=== PATIENT | male | born 1970 | race Caucasian/White ===

== ENCOUNTER 2024-03-21 09:15 | Emergency (ER) | payer OTHER, SELFPAY ==
--- NOTE | ~2024-03-21 | XR_ITS ---
EXAMINATION: XR chest 2V DATE: 03/21/2024 10:50 INDICATION: Hypertension. TECHNIQUE: Frontal and lateral views of the chest were obtained. COMPARISON: Chest 2 views 06/27/2005 FINDINGS: There is mild atelectasis at left lung base. No pleural effusion or pneumothorax. The heart size is normal. IMPRESSION: 1. Mild atelectasis at left lung base. Reviewed, dictated and finalized at location A.
[2024-03-21 09:17] VITALS: BP 207/118; PULSE 72; RESP 16; TEMP 36.6; O2SAT 100
--- NOTE | 2024-03-21 09:59 | ECG_ITS ---
Test Date: 2024-03-21 10:14:24 Measurements Intervals [place] Rate: 64 P: 19 WA: 176 QRS: -6 QRSD: 86 T: 15 QT: 381 QTc: 394 Interpretive Statements SINUS RHYTHM NORMAL ELECTROCARDIOGRAM No previous ECG available for comparison Electronically Signed On 03-22-2024 06:59:54 CDT by Sam Vilchis M.D.
[2024-03-21 10:16] LABS: Basophils Percent Auto 0.2 % (0.2-1.2); Eosinophils Absolute Auto 0.1 K/mm3 (0-0.3); Eosinophils Percent Auto 1.2 % (0-4.4); Hematocrit 43.5 % (42.0-52.0); Hemoglobin 16.1 g/dL (14.0-18.0); Immature Granulocyte Absolute 0.01 K/mm3 (0.00-0.031); Immature Granulocyte Percent A 0.2 % (0-0.5); Lymphocytes Absolute Auto 1.42 K/mm3 (0.9-3.2); Lymphocytes Percent Auto 28.2 % (18.3-44.2); Mean Corpuscular Hemoglobin 33.5 pg (26-34); Mean Corpuscular Volume 90.4 fl (80-100); Monocytes Absolute Auto 0.3 K/mm3 (0.1-0.6); Monocytes Percent Auto 6.4 % (2.6-8.5); Neutrophils Absolute Auto 3.2 K/mm3 (1.3-6.7); Neutrophils Percent Auto 63.8 % (45.5-73.1); Platelet Count Result 284 k/mm3 (150-375); Red Blood Count 4.81 M/mm3 (4.6-6.20); Red Cell Distribution Width 12.6 % (11.5-14.5)
[2024-03-21 10:18] VITALS: BP 169/122; PULSE 66; RESP 16; O2SAT 95
[2024-03-21] MEDS: hydroCHLOROthiazide 12.5 MG CAPSULE PO (10:25)
--- NOTE | 2024-03-21 10:25 | ED.RECABL ---
HPI - Recheck/Abnormal Lab/Rx General Chief Complaint: Recheck/Abnormal Lab/Rx Stated Complaint: elevated blood pressure Time Seen by Provider: 03/21/24 09:24 Source: patient Mode of arrival: ambulatory Limitations: no limitations History of Present Illness HPI narrative: patient is a 54-year-old male presents the ED with report of hypertension. Patient reports he saw a physician in [facility] a few weeks ago (where patient spends part of the year for work). His BP was elevated at that time and patient was told to monitor. Patient states this morning, he noted his BP to be elevated into the 170s-180s systolic/100-110s diastolic. He then prompted here for further evaluation. Patient states he otherwise feels in his normal state of health. Denies chest pain, shortness breath, vision changes, headaches, numbness, weakness. Has never been diagnosed with high blood pressure before, has never been of hypertensive medications. Denies any other past medical history. Related Data Allergies Allergy/AdvReac Type Severity Reaction Status Date / Time Penicillins Allergy Unknown Unknown Verified 03/21/24 09:27 Review of Systems Review of Systems: All systems reviewed & are unremarkable except as noted in HPI. All systems reviewed & are unremarkable except as noted in HPI and below PMFSH Family History Family History Father Family history of diabetes mellitus in first degree relative Family history of heart disease in male family member before age 55 Grandparent Family history of emphysema Diabetes mellitus Social History Social History Smoking status: Never smoker Alcohol intake: current Exam Narrative: GENERAL: Well appearing, BMI of 31.4, non-toxic, in no acute distress. HEAD: Normocephalic, atraumatic. RESPIRATORY: Airway patent, respirations nonlabored. Clear to auscultation bilaterally, no rales, rhonchi, wheezing. CARDIOVASCULAR: Regular rate and rhythm without murmurs, rubs, or gallops. peripheral pulses intact. MUSCULOSKELETAL: Moves all extremities. No gross deformities. SKIN: Warm, dry, normal color. NEURO: A&O X3. Speech clear. Cranial nerves II-XII grossly intact. Steady gait. No ataxic movements. PSYCHIATRIC: Appropriate mood and affect. Normal interaction. Course Vital Signs Vital signs: Vital Signs Temperature 97.9 F 03/21/24 09:17 Pulse Rate 72 03/21/24 09:17 Respiratory Rate 16 03/21/24 09:17 Blood Pressure 207/118 H 03/21/24 09:17 Pulse Oximetry 100 03/21/24 09:17 Oxygen Delivery Room Air 03/21/24 09:17 Temperature 97.9 F 03/21/24 09:17 Pulse Rate 69 03/21/24 11:19 Respiratory Rate 20 03/21/24 11:19 Blood Pressure 181/119 H 03/21/24 11:19 Pulse Oximetry 96 03/21/24 11:19 Oxygen Delivery Room Air 03/21/24 09:17 MDM - Recheck/Abnormal Lab/Rx MDM Narrative Medical decision making narrative: Patient presented to ED with new onset hypertension, asymptomatic at this time. Initial blood pressure upon arrival 207/118. Did improve into the 160-180 systolic range without intervention. Patient has had numerous elevated readings over the last few weeks. Discussed official diagnosis of hypertension and need for medication based on this. Will obtain basic laboratory studies and start patient on hydrochlorothiazide as first-line. Basic laboratory studies are unremarkable. No evidence of end-organ damage. Urinalysis is clear. EKG nonischemic. Troponin undetectable. Chest x-ray with atelectasis, otherwise clear. Patient will be discharged with close outpatient follow-up. Will prescribe hydrochlorothiazide for home use, advised patient to continue monitoring blood pressures, advised close follow-up with PCP for further evaluation and continued management. Patient was given strict return precautions. He agrees with plan. Discharged
[2024-03-21 10:28] VITALS: RESP 19
[2024-03-21 10:28] LABS: Add Urine Microscopic? NO; Appearance Urine Clear (Clear); Bilirubin Urine Negative (Negative); Blood Urine Negative (Negative); Color Urine Yellow (Yellow); Glucose Urine UA Negative (Negative); Ketones Urine Negative (Negative); Leukocyte Esterase Ur Negative LEU/UL (Negative); Nitrate Urine Negative (Negative); Protein Urine Negative (Negative); Specific Grav Ur 1.006 (1.001-1.035); Urobilinogen Urine 0.2 mg/dL (<2.0)
[2024-03-21 10:33] LABS: Alanine Aminotransferase 55 U/L (6-50); Albumin Level 4.3 g/dL (3.5-5.1); Alkaline Phosphatase 66 U/L (38-126); Anion Gap 8 mmol/L (4-12); Aspartate Amino Transferase 40 U/L (17-59); Bilirubin,Total 1.7 mg/dL (0.2-1.3); Blood Urea Nitrogen 15 mg/dL (9-20); Calcium 9.4 mg/dL (8.4-10.2); Carbon Dioxide 27 mmol/L (22-30); Chloride 103 mmol/L (98-107); Estimated CRCL calculation 72 ml/min; Estimated Glomerular Filt Rate 57; Glucose 97 mg/dL (65-110); Sodium 138 mmol/L (137-145)
[2024-03-21 10:43] LABS: Troponin I < 0.012 ng/mL (0.000-0.034)
[2024-03-21 11:19] VITALS: BP 181/119; PULSE 69; RESP 20; O2SAT 96
== END 2024-03-21 11:33 | disposition home or self-care (01) ==
PROVIDERS: Emergency Provider Physician Assistant
DX: I10 Essential (primary) hypertension (principal)
CPT/HCPCS: 36415; 71046; 80053; 81003; 84484; 85025; 93005; 99284; A9270